=== PATIENT | female | born 1965 | race Caucasian/White ===

== ENCOUNTER 2023-06-19 10:20 | Outpatient (RCR) | payer BC, SELFPAY | END 2023-06-25 12:57 | disposition home or self-care (01) | PROVIDERS: PCP Orthopaedic Surgery; Visit Provider Orthopaedic Surgery | DX: M16.0 Bilateral primary osteoarthritis of hip (principal); M70.61 Trochanteric bursitis, right hip; M70.62 Trochanteric bursitis, left hip; M25.552 Pain in left hip; R53.1 Weakness; R26.9 Unspecified abnormalities of gait and mobility; R26.81 Unsteadiness on feet; Z51.89 Encounter for other specified aftercare | CPT/HCPCS: 97110; 97162 ==

== ENCOUNTER 2023-07-02 06:02 | Day surgery (SDC) | payer BC, SELFPAY ==
[2023-07-02] VITALS (27 sets, daily range): BP systolic 80–142; BP diastolic 45–93; PULSE 65–90; RESP 14–18; TEMP 36.1–36.6; O2SAT 95–100; BMI 32.2
[2023-07-02] MEDS: LACTATED RINGERS 1000 ML 1,000 ML 100 ML IV ×2 (06:00→08:30)
[2023-07-02] MEDS: ACETAMINOPHEN 500 MG TABLET 1000 MG PO ×3 (06:39→20:27)
[2023-07-02] MEDS: CELECOXIB 200 MG CAPSULE PO (06:39)
[2023-07-02] MEDS: OXYCODONE (CR) 10 MG TAB.ER.12H PO (06:39)
[2023-07-02] MEDS: SODIUM CHLORIDE 0.9 % (FLUSH) 10 ML SYRINGE IVF (06:40)
[2023-07-02] MEDS: MIDAZOLAM HCL 1 MG/ML inj IVP (07:11)
[2023-07-02] MEDS: fentaNYL 100 MCG/2 ML inj IVP (07:11)
--- NOTE | 2023-07-02 07:15 | CRLHL7_ITS ---
For Patients: As a result of the Cures Act, medical imaging exams and procedure reports are released immediately into your electronic medical record. You may view this report before your referring provider. If you have questions, please contact your health care provider. Indication: Hip replacement surgery Technique: AP hip fluoroscopic images. Fluoroscopy time 114.3 seconds. Findings/Impression: Hardware from a left total hip arthroplasty is in satisfactory position. Dictated by Danial Sy MD @ 07/02/2023 12:04:32 PM (Electronically Signed)
--- NOTE | 2023-07-02 07:21 | SUR.PREOP ---
TIME?OUT:?0710 PT/RN/MDA?VERIFICATION?OF?SURGICAL?SITE left hip,?PROCEDURE Nerve block,?AND?CONSENT OBTAINED?PRIOR?TO?INVASIVE?PROCEDURE.
[2023-07-02] MEDS: CEFAZOLIN 2 GM INJ IVP (07:45)
[2023-07-02] MEDS: TRANEXAMIC ACID 100 MG/ML INJ 1000 MG IV (07:50)
--- NOTE | 2023-07-02 09:23 | W.PM.NB ---
Nerve Block Nerve Block Time Seen by Provider: 07:15 Date Seen: 07/02/23 Type of block requested by surgeon for post-operative analgesia: ADRIAN/LFCN Side: left Time out performed: Yes Verification of patient name: Yes Verification of date of : Yes Site marking: site marked Name of person performing procedure: Lorenzo Continuous monitoring Was continuous monitoring of O2 sat, B/P, athletic monitor, recorded every 15 minutes?: Yes Procedure Checklist: sterile prep, needles and gloves Ultrasound guided. Images saved: Yes Medications given in 5ml increments after negative aspiration: Ropivicaine %: 0.5 mL: 30 Needle gauge: 20 Decadron (mg): 10 Precedex (mcg): 25 Patient tolerated procedure well: Yes Additional comments: Needle noted below psoas tendon needle noted adjacent to LFCN Block Charges Block Charge (with Pro Fee): Other Periph Nerve Block Use of Ultrasound Machine for Block: Yes- US Guidance/pain block
--- NOTE | 2023-07-02 09:23 | W.ANESCHARGE ---
Anesthesia Charges Start Date/Time Anesthesia Start Date: 07/02/23 Anesthesia Start Time: 07:25 Stop Date/Time Anesthesia Stop Date: 07/02/23 Anesthesia Stop Time: 10:29
--- NOTE | 2023-07-02 09:46 | CRLHL7_ITS ---
For Patients: As a result of the Century Cures Act, medical imaging exams and procedure reports are released immediately into your electronic medical record. You may view this report before your referring provider. If you have questions, please contact your health care provider. Indication: POST OP Technique: AP hip centered pelvis and two views left hip Findings/Impression: Hardware from a left total hip arthroplasty is in satisfactory position. Bone alignment is normal. No sign of acute fracture. Postop changes are within normal limits. Dictated by Danial Sy MD @ 07/02/2023 12:08:16 PM (Electronically Signed)
--- NOTE | 2023-07-02 10:05 | P.ORPRC_ITS ---
Procedure Note Date of procedure: 07/02/23 Procedure: PREOPERATIVE DIAGNOSIS: Left hip osteoarthritis, acetabular dysplasia POSTOPERATIVE DIAGNOSIS: Left hip osteoarthritis, acetabular dysplasia NAME OF OPERATION: Left total hip arthroplasty SURGEON: Roshan Quintanilla MD LANDSCAPING SUPERVISOR: Gloria Frausto PA-C, CITLALI Augustin IMPLANTS: 1. [employer] [place] # 54 sector ingrowth cup, with 2 6.5 mm x 50 mm screws, 1 6.5 mm x 30 mm screw 2. 36 x 54 +4 neutral polyethylene 3. Actis # 7 standard collared ingrowth stem 4. 36 + 1.5 ceramic femoral head ANESTHESIA: General ESTIMATED BLOOD LOSS: 700 cc COMPLICATIONS: None SPECIMENS: None DRAINS: None PREOPERATIVE ANTIBIOTICS: Ancef 2 grams INDICATIONS: The patient is a 58-year-old with a longstanding history of severe, unrelenting left hip pain secondary to end-stage left hip osteoarthritis. Despite appropriate nonoperative management, including activity modification, use of an assist device, anti-inflammatories, [id number] pain medication, physical therapy and injections, they continue to have pain and disability. Operative intervention was offered. The risks, benefits and expected outcomes were discussed in detail. These included but were not limited to: Infection, bleeding, injury to blood vessel or nerve, venous thromboembolism. All questions were answered to their satisfaction. Use of an assistant professor of criminal justice was necessary throughout the case for patient positioning and safety, soft tissue retraction and closure. A modifier 22 should be added to this case. The shallow acetabulum with poor anterior column bone stock made reconstruction of the cup difficult. This took more than 2 times as long as is typical. Additionally, this increased our blood loss by 2. PROCEDURE: The patient was placed supine on the [place] table. General anesthesia was administered. The assistant professor of criminal justice made sure the patient was properly positioned. The left hip was prepped and draped in the usual sterile fashion. The image intensifier was brought in for a perfect AP pelvis and a perfect double tear drop AP view of each hip which were used for intraoperative templating with our fluoroscopic guide. An oblique incision was made 3 cm distal and 3 cm lateral to the anterior superior iliac spine. The assistant professor of criminal justice retracted the soft tissues to protect them. Subcutaneous dissection was taken with electrocautery to the superficial fascia. The fascia was divided in line with the incision. Blunt dissection was carried medially to the tensor fascia lo and sartorius interval. Deep dissection was carried with electrocautery. The circumflex vessels were cauterized and divided. The capsule was exposed and then divided in a T- fashion, tagged with #1 Ethibond sutures. Retractors were placed in the joint, held by the assistant professor of criminal justice. The corkscrew was placed in the femoral head. The neck cut was made in the subcapital region. We made a second neck cut more distal. The napkin ring of bone was removed. The femoral head was removed intact. Acetabular retractors were placed, held by the assistant professor of criminal justice. The labrum was sharply debrided. The capsule was released. The anterior column is quite small with significant acetabular dysplasia. The 43 mm reamer was used to the true medial wall. We then enlarged in 2 mm increments using the image intensifier for our reamer placement. We impacted the cup which had poor purchase. Therefore, we oriented the cup in the acetabulum temporarily. We then placed a 6.5 mm x 50 mm screw straight up the ilium. Its placement was confirmed with the image intensifier. This had excellent fixation. We placed a 2nd, 6.5 mm x 30 mm screw posteriorly. This had excellent fixation. Finally, we placed a 3rd screw measuring 6.5 mm x 30 mm up the ilium. This had excellent fixation as well. Now the cup is solidly fixed in the acetabulum. Screw placement was confirmed with the image intensifier. The polyethylene was placed. Attention was then turned to the proximal femur. The limb was placed in 140 degrees of external rotation, maximum extension and adduction. A significant amount of time was spent releasing the capsule to allow us to deliver the femur into the wound and complete the femoral side safely. Retractors were held by the assistant professor of criminal justice throughout the femoral preparation. The box repairer and canal finder were used. Broaches were used to a stable size. The calcar reamer was used. Trial components were placed. The hip was reduced and was found to be stable with appropriate soft tissue tension. Length and offset had been nicely restored using the image intensifier and our fluoroscopic guide. Trial components were removed. The stem was impacted. We placed the femoral head. Again, the hip was reduced and was found to be stable with appropriate soft tissue tension. Length and offset had been nicely restored. The assistant professor of criminal justice did a three minute dilute Betadine solution soak. The assistant professor of criminal justice irrigated the wound with 3 liters of normal saline via pulse lavage. The assistant professor of criminal justice repaired the anterior capsule with a #1 Vicryl and our previously placed Ethibond sutures. The assistant professor of criminal justice closed the fascia over the tensor fascia lo with a #1 PDO Stratafix, subcutaneous tissues with 2-0 Vicryl, skin with a running 3-0 Stratafix and glue. A dry dressing was applied by the assistant professor of criminal justice. Sponge and needle counts were correct x 2. The patient tolerated the procedure well; there were no apparent complications. They were awakened and extubated in the operating room, sent to the Post-Anesthesia Care Unit in satisfactory condition. PLAN: 1. The patient will be mobilized with physical therapy, weight-bearing as tolerates 2. Xarelto x 5 days then aspirin x 30 days will be used for DVT prophylaxis 3. The patient will be discharged once medically appropriate
[2023-07-02] MEDS: LACTATED RINGERS 1000 ML 1,000 ML 75 ML IV ×2 (10:32→11:24)
--- NOTE | 2023-07-02 10:37 | W.ANESCHARGE ---
Anesthesia Charges Start Date/Time Anesthesia Start Date: 07/02/23 Anesthesia Start Time: 07:25 Stop Date/Time Anesthesia Stop Date: 07/02/23 Anesthesia Stop Time: 10:29
[2023-07-02] MEDS: fentaNYL 100 MCG/2 ML inj 50 MCG IVP (10:50)
[2023-07-02] MEDS: HYDROmorphone 0.5 mg/0.5 ml inj IVP (11:00)
--- NOTE | 2023-07-02 15:04 | PM.IMCN1 ---
Date of Consult Patient: Francisco Patient Consult date: 07/02/23 Requesting Physician: Orthopedics Primary Care Provider: Not a Local Provider Consult Narrative Reason for consult: post op L SANTY Narrative: Verenice Luu is a 58 year old woman undergoes an elective left total hip arthroplasty today. Due to some technical difficulties the procedure takes a little longer than usual. Estimated blood loss 700 mL. Patient notes that she feels well at this time. Pain adequately managed. Has already walked from bed to recliner chair at bedside. Denies chest heaviness, pressure, tightness, or pain. Denies cough, dyspnea at rest, paroxysmal nocturnal dyspnea, orthopnea. Denies syncope or near-syncope. Denies orthostasis. Denies nausea or vomiting. Denies abdominal pain. Tolerating clear liquids orally. Review of Systems Status of ROS: Reports: 10 or more systems reviewed and unremarkable except as noted in History and below Narrative: Reviewed preoperative assessment from 06/19/2023, Dr. Perry, who concludes there are no apparent medical contraindications for surgery or anesthesia. Good exercise tolerance including capable of climbing more than 2 flights of stairs or walking more than 4 blocks without rest. Occasionally takes Excedrin for migraine headache. Does not use tobacco products. Does not consume alcoholic beverages. Denies the use of street or recreational drugs. for 37 years. [address] with . [facility] Medical History History of ectopic ?Z87.59 - Personal history of other complications of , childbirth and the puerperium (ICD-10) Thoracic or lumbosacral neuritis or radiculitis Migraine headache ?G43.909 - Migraine, unspecified, not intractable, without status migrainosus (ICD-10) Osteoarthritis ?M19.90 - Unspecified osteoarthritis, unspecified site (ICD-10) Surgical History H/O section ?Z98.891 - History of uterine scar from previous surgery (ICD-10) H/O hernia repair ?Z98.890 - Other specified postprocedural states (ICD-10) ?Z87.19 - Personal history of other diseases of the digestive system (ICD-10) H/O lumbar discectomy ?Z98.890 - Other specified postprocedural states (ICD-10) Family History Mother High blood pressure Social History Smoking Status: Never smoker How often do you have a drink containing alcohol: never AUDIT-C Alcohol total score: 0 Non-prescribed substance use: denies use Caffeine: Yes Are you using contraception or practicing any form of control: No Meds Home Medications and Allergies Home Medications Medication Instructions Recorded Confirmed Type multivitamin 1 tab PO QDAY 06/17/23 07/02/23 History ibuprofen 200 mg tablet (IBU-200) 600 mg PO Q6H PRN 06/30/23 07/02/23 History Home Medication Comments: Excedrin as needed for migraine headache Allergies Allergy/AdvReac Type Severity Reaction Status Date / Time No Known Drug Allergies Allergy Verified 07/02/23 06:19 Exam Narrative: Exam Narrative: Examined patient in her hospital room. Vision and hearing are normal. Appears sleepy but is awake, alert, oriented to self, place, time, situation. Tympanic membranes are normal. Midline nasal septum. Dentition in good repair. Neck is supple. Midline trachea. No head neck lymphadenopathy. Lungs are clear to auscultation, without wheezing, rhonchi, rales. Chest wall excursions are full. No CVA tenderness. Heart tones with regular rhythm, normal S1-S2, without murmur, gallop, or rub. PMI not laterally displaced. Abdomen with active bowel sounds, soft, nontender. Moves all 4 extremities. Const: Vital Signs, click to edit/add: Vital Signs - 24 hr 07/02/23 06:27 07/02/23 07:10 07/02/23 07:15 Temperature 97.6 F Pulse Rate 90 78 75 Pulse Rate [Pulse Oximeter] Respiratory Rate 16 16 16 Blood Pressure 133/90 H 142/93 H 134/78 Blood Pressure [Le ft Arm] Pulse Oximetry 99 99 99 Oxygen Delivery Me thod Room Air Nasal Cannula Nasal Cannula Oxygen Flow Rate 2 2 07/02/23 07:20 07/02/23 10:24 07/02/23 10:30 Temperature 97.0 F L Pulse Rate 76 70 70 Pulse Rate [Pulse Oximeter] Respiratory Rate 16 16 16 Blood Pressure 130/80 80/45 L 81/51 L Blood Pressure [Le ft Arm] Pulse Oximetry 99 96 96 Oxygen Delivery Me thod Nasal Cannula Room Air Room Air Oxygen Flow Rate 2 07/02/23 10:35 07/02/23 10:40 07/02/23 10:45 Temperature Pulse Rate 65 70 74 Pulse Rate [Pulse Oximeter] Respiratory Rate 14 16 14 Blood Pressure 81/53 L 94/56 L 92/72 Blood Pressure [Le ft Arm] Pulse Oximetry 98 98 96 Oxygen Delivery Me thod Room Air Room Air Room Air Oxygen Flow Rate 07/02/23 10:50 07/02/23 10:55 07/02/23 11:00 Temperature Pulse Rate 75 70 76 Pulse Rate [Pulse Oximeter] Respiratory Rate 16 16 16 Blood Pressure 101/68 105/62 103/66 Blood Pressure [Le ft Arm] Pulse Oximetry 97 96 100 Oxygen Delivery Me thod Room Air Room Air Room Air Oxygen Flow Rate 07/02/23 11:05 07/02/23 11:11 07/02/23 11:20 Temperature Pulse Rate 70 70 86 Pulse Rate [Pulse Oximeter] Respiratory Rate 16 16 16 Blood Pressure 102/60 98/64 Blood Pressure [Le ft Arm] 110/63 Pulse Oximetry 96 98 Oxygen Delivery Me thod Room Air Room Air Room Air Oxygen Flow Rate 07/02/23 11:30 07/02/23 11:45 07/02/23 12:00 Temperature 97.0 F L Pulse Rate Pulse Rate [Pulse Oximeter] 77 77 74 Respiratory Rate 16 16 16 Blood Pressure Blood Pressure [Le ft Arm] 111/69 114/73 107/72 Pulse Oximetry 97 99 97 Oxygen Delivery Me thod Room Air Room Air Room Air Oxygen Flow Rate 07/02/23 12:15 07/02/23 12:30 07/02/23 13:00 Temperature 97.4 F L Pulse Rate Pulse Rate [Pulse Oximeter] 78 89 86 Respiratory Rate 16 16 18 Blood Pressure Blood Pressure [Le ft Arm] 113/73 114/79 133/92 H Pulse Oximetry 98 96 98 Oxygen Delivery Me thod Room Air Room Air Room Air Oxygen Flow Rate 07/02/23 14:00 Temperature 97.9 F Pulse Rate Pulse Rate [Pulse Oximeter] 88 Respiratory Rate 16 Blood Pressure Blood Pressure [Le ft Arm] 115/75 Pulse Oximetry 97 Oxygen Delivery Me thod Room Air Oxygen Flow Rate Assessment and Plan Assessment and plan (1) Status post left hip replacement: Problem comment: -07/02/2022, Dr. Quintanilla, [facility] Status: Acute (2) Bilateral primary osteoarthritis of hip: Problem comment: End-stage bilateral Status: Acute Plan 1. Reviewed impression with patient and her . 2. Answered their questions are satisfaction. 3. Agree with perioperative antibiotic prophylaxis. 4. Agree with postoperative venous thromboembolism prophylaxis. 5. Have completed the hospitalist portion of the discharge orders for this patient, and from a medical perspective anticipate patient will be able to be discharged to her home tomorrow.
[2023-07-02] MEDS: CEFAZOLIN 2 GM in 0.9 % SODIUM CHLORIDE Mini-bag 100 ML IVPB (16:04)
[2023-07-02] MEDS: OXYCODONE 5 MG TABLET PO ×2 (16:24→20:29)
[2023-07-02] MEDS: SENNOSIDES 1 TAB TABLET 2 TAB PO (20:28)
[2023-07-03] VITALS: BP 123/74; PULSE 84; RESP 16; TEMP 36.6; O2SAT 96
[2023-07-03] MEDS: OXYCODONE 5 MG TABLET PO ×4 (00:01→12:25)
[2023-07-03] MEDS: CEFAZOLIN 2 GM in 0.9 % SODIUM CHLORIDE Mini-bag 100 ML IVPB (00:02)
[2023-07-03] MEDS: ACETAMINOPHEN 500 MG TABLET 1000 MG PO ×2 (02:19→08:29)
[2023-07-03 02:34] VITALS: BP 110/66; PULSE 82; RESP 16; TEMP 36.9; O2SAT 95
[2023-07-03 06:42] LABS: Basophils Percent Auto 0.1 % (0.0-3.0); Hematocrit 32.2 % (33.0-51.0); Hemoglobin* 10.7 gm/dL (12.0-16.0); Immature Granulocytes Pct Auto 0.2 %; Lymphocytes Percent Auto 15.5 % (20-44); Mean Corpuscular HGB Conc 33 gm/dL (32-36); Mean Corpuscular Hemoglobin 31 pg (26-34); Mean Corpuscular Volume 94 fL (80-100); Monocytes Percent Auto 6.3 % (0.0-11.0); Neutrophils Percent Auto 77.9 % (42.0-72.0); Platelet Count* 233 K/uL (140-440); RDW Coefficient of Variation % 13.4 % (11.5-15.5); Red Blood Count 3.43 m/uL (4.00-5.20); White Blood Count* 18.48 K/uL (4.50-11.00)
[2023-07-03 06:44] LABS: Slide Review Reflex No
[2023-07-03 07:03] LABS: Potassium* 3.9 mmol/L (3.6-5.1); Sodium* 137 mmol/L (135-149)
[2023-07-03 07:06] LABS: Blood Urea Nitrogen* 13 mg/dL (7-30); Creatinine* 0.7 mg/dL (0.5-1.5); Est. Creatinine Clearance* 83.11; Estimated Glomerular Filt Rate 99 ml/min
--- NOTE | 2023-07-03 07:28 | PC.NURSE ---
End of shift note [id number]: Pt alert & oriented x 4 and able to transfer/ambulate with SBA using GB and RW. Pain to L hip has been 2-3/10 throughout the shift per pt report and controlled with PRN Oxycodone, rest, repositioning and ice. No c/o CP, shortness of breath or N/V noted throughout the shift. PRN Oxycodone administered with crackers provided to prevent GI upset. Dressing to L hip noted to be C/D/I and bilateral plexi pulses worn along with bilateral TEDs. IV in L hand SL after receiving last dose of IV ABX. Pt noted to have 2 IVs in L hand at start of shift though pt reported one IV got caught on her blanket during the night and came out- catheter tip of IV noted to be intact upon inspection. Andreas has stayed the night with pt. Pt has slept in both recliner and bed as she reports bed is not comfortable for her to sleep in continually. VSS and pt has been afebrile throughout the shift. CMS to LLE noted to be intact with <3 seconds capillary refill.
[2023-07-03 07:45] VITALS: BP 110/69; PULSE 85; RESP 16; TEMP 36.8; O2SAT 98
--- NOTE | 2023-07-03 07:52 | PM.ORCN ---
History of Present Illness HPI Time Seen by Provider: 07:52 Date Seen: 07/03/23 Consult date: 07/03/23 Chief complaint: Surgery Narrative: Vera couple this morning in the recliner. She denies nausea and vomiting today. She had some initially after surgery which has resolved. She has ambulated around her room and into the restroom which went well. She is accompanied by her . Review of Systems Narrative: Patient denies nausea, vomiting, fever, chills, chest pain, shortness of breath PFSH PFSH Medical History History of ectopic ?Z87.59 - Personal history of other complications of , childbirth and the puerperium (ICD-10) Thoracic or lumbosacral neuritis or radiculitis Migraine headache ?G43.909 - Migraine, unspecified, not intractable, without status migrainosus (ICD-10) Osteoarthritis ?M19.90 - Unspecified osteoarthritis, unspecified site (ICD-10) Surgical History H/O section ?Z98.891 - History of uterine scar from previous surgery (ICD-10) H/O hernia repair ?Z98.890 - Other specified postprocedural states (ICD-10) ?Z87.19 - Personal history of other diseases of the digestive system (ICD-10) H/O lumbar discectomy ?Z98.890 - Other specified postprocedural states (ICD-10) Family History Mother High blood pressure Social History Smoking Status: Never smoker How often do you have a drink containing alcohol: never AUDIT-C Alcohol total score: 0 Non-prescribed substance use: denies use Caffeine: Yes Are you using contraception or practicing any form of control: No Meds Home Medications and Allergies Home Medications Medication Instructions Recorded Confirmed Type multivitamin 1 tab PO QDAY 06/17/23 07/02/23 History ibuprofen 200 mg tablet (IBU-200) 600 mg PO Q6H PRN 06/30/23 07/02/23 History Allergies Allergy/AdvReac Type Severity Reaction Status Date / Time No Known Drug Allergies Allergy Verified 07/02/23 06:19 Ortho Exam Const Vital Signs, click to edit/add: Vital Signs - 24 hr 07/02/23 10:24 07/02/23 10:30 07/02/23 10:35 Temperature 97.0 F L Pulse Rate 70 70 65 Pulse Rate [Pulse Oximeter] Respiratory Rate 16 16 14 Blood Pressure 80/45 L 81/51 L 81/53 L Blood Pressure [Left Arm] Blood Pressure [Right Arm] Pulse Oximetry 96 96 98 Oxygen Delivery Method Room Air Room Air Room Air 07/02/23 10:40 07/02/23 10:45 07/02/23 10:50 Temperature Pulse Rate 70 74 75 Pulse Rate [Pulse Oximeter] Respiratory Rate 16 14 16 Blood Pressure 94/56 L 92/72 101/68 Blood Pressure [Left Arm] Blood Pressure [Right Arm] Pulse Oximetry 98 96 97 Oxygen Delivery Method Room Air Room Air Room Air 07/02/23 10:55 07/02/23 11:00 07/02/23 11:05 Temperature Pulse Rate 70 76 70 Pulse Rate [Pulse Oximeter] Respiratory Rate 16 16 16 Blood Pressure 105/62 103/66 102/60 Blood Pressure [Left Arm] Blood Pressure [Right Arm] Pulse Oximetry 96 100 96 Oxygen Delivery Method Room Air Room Air Room Air 07/02/23 11:11 07/02/23 11:20 07/02/23 11:30 Temperature 97.0 F L Pulse Rate 70 86 Pulse Rate [Pulse Oximeter] 77 Respiratory Rate 16 16 16 Blood Pressure 98/64 Blood Pressure [Left Arm] 110/63 111/69 Blood Pressure [Right Arm] Pulse Oximetry 98 97 Oxygen Delivery Method Room Air Room Air Room Air 07/02/23 11:45 07/02/23 12:00 07/02/23 12:15 Temperature Pulse Rate Pulse Rate [Pulse Oximeter] 77 74 78 Respiratory Rate 16 16 16 Blood Pressure Blood Pressure [Left Arm] 114/73 107/72 113/73 Blood Pressure [Right Arm] Pulse Oximetry 99 97 98 Oxygen Delivery Method Room Air Room Air Room Air 07/02/23 12:30 07/02/23 13:00 07/02/23 14:00 Temperature 97.4 F L 97.9 F Pulse Rate Pulse Rate [Pulse Oximeter] 89 86 88 Respiratory Rate 16 18 16 Blood Pressure Blood Pressure [Left Arm] 114/79 133/92 H 115/75 Blood Pressure [Right Arm] Pulse Oximetry 96 98 97 Oxygen Delivery Method Room Air Room Air Room Air 07/02/23 15:00 07/02/23 16:00 07/02/23 17:00 Temperature 97.5 F L 97.7 F Pulse Rate Pulse Rate [Pulse Oximeter] 78 76 79 Respiratory Rate 16 16 16 Blood Pressure Blood Pressure [Left Arm] 111/69 115/69 122/86 Blood Pressure [Right Arm] Pulse Oximetry 95 97 98 Oxygen Delivery Method Room Air Room Air Room Air 07/02/23 20:00 07/02/23 23:00 07/03/23 00:00 Temperature 97.8 F 97.9 F Pulse Rate Pulse Rate [Pulse Oximeter] 85 84 84 Respiratory Rate 16 16 16 Blood Pressure Blood Pressure [Left Arm] Blood Pressure [Right Arm] 120/75 123/74 Pulse Oximetry 98 96 Oxygen Delivery Method Room Air Room Air 07/03/23 02:34 Temperature 98.5 F Pulse Rate Pulse Rate [Pulse Oximeter] 82 Respiratory Rate 16 Blood Pressure Blood Pressure [Left Arm] Blood Pressure [Right Arm] 110/66 Pulse Oximetry 95 Oxygen Delivery Method Room Air Results Labs Labs: Laboratory Results - last 48 hr 07/02/23 07/03/23 07:05 05:45 WBC 18.48 H RBC 3.43 L Hgb 10.7 L Hct 32.2 L MCV 94 MCH 31 MCHC 33 RDW Coeff of [place] 13.4 Plt Count 233 Neut % (Auto) 77.9 H Lymph % (Auto) 15.5 L [place] % (Auto) 6.3 Eos % (Auto) 0.0 Baso % (Auto) 0.1 Neut # (Auto) 14.40 H Lymph # (Auto) 2.90 [place] # (Auto) 1.20 H Eos # (Auto) 0.00 Baso # (Auto) 0.00 Abs Immat Gran (auto) 0.00 Imm/Tot Granulo (auto) 0.2 Sodium 137 Potassium 3.9 BUN 13 Creatinine 0.7 Estimated Creat Clear 83.11 Estimated GFR 99 Blood Type A Positive Antibody Screen NEGATIVE Assessment and Plan Assessment and plan (1) Status post left hip replacement: Problem comment: -07/02/2022, Dr. Quintanilla, [facility] Status: Acute Total time spent: Total time spent is greater than 50% in coordination of care (as documented) at patient's floor/unit and/or counseling patient: (2) Bilateral primary osteoarthritis of hip: Problem comment: End-stage bilateral Status: Acute Total time spent: Total time spent is greater than 50% in coordination of care (as documented) at patient's floor/unit and/or counseling patient:
--- NOTE | 2023-07-03 07:55 | P.ORPN_ITS ---
Subjective Subjective Time Seen by Provider: 07:55 Date Seen: 07/03/23 Principal diagnosis: Status post left hip replacement Interval history: Vera is comfortable in her recliner. She has ambulated within her room and to the restroom. This went well. She denies nausea and vomiting. She had nausea initially after surgery which has resolved. Ortho Exam Narrative Exam Narrative: Alert and oriented x3. Patient is in no acute distress. Converses without labored breathing. Hearing is grossly intact. Ambulates with a walker. Examination of left hip shows the dressing is intact. Mild soft tissue edema. No tenderness to palpation. CMS intact left lower extremity. Quad strength 5/5. Able to dorsiflex and plantar flex the left ankle and great toe. Bilateral calves are soft and nontender Const Vital Signs, click to edit/add: Vital Signs - 24 hr 07/02/23 10:24 07/02/23 10:30 07/02/23 10:35 Temperature 97.0 F L Pulse Rate 70 70 65 Pulse Rate [Pulse Oximeter] Respiratory Rate 16 16 14 Blood Pressure 80/45 L 81/51 L 81/53 L Blood Pressure [Left Arm] Blood Pressure [Right Arm] Pulse Oximetry 96 96 98 Oxygen Delivery Method Room Air Room Air Room Air 07/02/23 10:40 07/02/23 10:45 07/02/23 10:50 Temperature Pulse Rate 70 74 75 Pulse Rate [Pulse Oximeter] Respiratory Rate 16 14 16 Blood Pressure 94/56 L 92/72 101/68 Blood Pressure [Left Arm] Blood Pressure [Right Arm] Pulse Oximetry 98 96 97 Oxygen Delivery Method Room Air Room Air Room Air 07/02/23 10:55 07/02/23 11:00 07/02/23 11:05 Temperature Pulse Rate 70 76 70 Pulse Rate [Pulse Oximeter] Respiratory Rate 16 16 16 Blood Pressure 105/62 103/66 102/60 Blood Pressure [Left Arm] Blood Pressure [Right Arm] Pulse Oximetry 96 100 96 Oxygen Delivery Method Room Air Room Air Room Air 07/02/23 11:11 07/02/23 11:20 07/02/23 11:30 Temperature 97.0 F L Pulse Rate 70 86 Pulse Rate [Pulse Oximeter] 77 Respiratory Rate 16 16 16 Blood Pressure 98/64 Blood Pressure [Left Arm] 110/63 111/69 Blood Pressure [Right Arm] Pulse Oximetry 98 97 Oxygen Delivery Method Room Air Room Air Room Air 07/02/23 11:45 07/02/23 12:00 07/02/23 12:15 Temperature Pulse Rate Pulse Rate [Pulse Oximeter] 77 74 78 Respiratory Rate 16 16 16 Blood Pressure Blood Pressure [Left Arm] 114/73 107/72 113/73 Blood Pressure [Right Arm] Pulse Oximetry 99 97 98 Oxygen Delivery Method Room Air Room Air Room Air 07/02/23 12:30 07/02/23 13:00 07/02/23 14:00 Temperature 97.4 F L 97.9 F Pulse Rate Pulse Rate [Pulse Oximeter] 89 86 88 Respiratory Rate 16 18 16 Blood Pressure Blood Pressure [Left Arm] 114/79 133/92 H 115/75 Blood Pressure [Right Arm] Pulse Oximetry 96 98 97 Oxygen Delivery Method Room Air Room Air Room Air 07/02/23 15:00 07/02/23 16:00 07/02/23 17:00 Temperature 97.5 F L 97.7 F Pulse Rate Pulse Rate [Pulse Oximeter] 78 76 79 Respiratory Rate 16 16 16 Blood Pressure Blood Pressure [Left Arm] 111/69 115/69 122/86 Blood Pressure [Right Arm] Pulse Oximetry 95 97 98 Oxygen Delivery Method Room Air Room Air Room Air 07/02/23 20:00 07/02/23 23:00 07/03/23 00:00 Temperature 97.8 F 97.9 F Pulse Rate Pulse Rate [Pulse Oximeter] 85 84 84 Respiratory Rate 16 16 16 Blood Pressure Blood Pressure [Left Arm] Blood Pressure [Right Arm] 120/75 123/74 Pulse Oximetry 98 96 Oxygen Delivery Method Room Air Room Air 07/03/23 02:34 Temperature 98.5 F Pulse Rate Pulse Rate [Pulse Oximeter] 82 Respiratory Rate 16 Blood Pressure Blood Pressure [Left Arm] Blood Pressure [Right Arm] 110/66 Pulse Oximetry 95 Oxygen Delivery Method Room Air Assessment and Plan Assessment and plan (1) Status post left hip replacement: Problem details: -07/02/2022, Dr. Quintanilla, [facility] Status: Acute Assessment and Plan: Plan for discharge is today to home if they meet discharge criteria. DVT prophylaxis includes Xarelto 10 mg daily for total of 5 days, then aspirin 81 mg twice daily for 30 days, José Miguel stockings x1 month may remove for 1 hr per day, frequent ambulation Remove dressing 1 week. Observe wound and phone Orthopedics with any questions or concerns Use Ice on operative hip unrestricted. Return to clinic in 1 week with PA for a wound check Return to clinic in 6 weeks with surgeon Minimize narcotic use. Wean off and discontinue soon as possible. Activities as tolerated. No strenuous activity. Attend outpt PT Over the next week swelling and bruising may increase. Elevate left lower extremity as needed.
[2023-07-03] MEDS: RIVAROXABAN 10 MG TABLET PO (08:29)
[2023-07-03] MEDS: SENNOSIDES 1 TAB TABLET 2 TAB PO (08:29)
--- NOTE | 2023-07-03 12:57 | PC.NURSE ---
VSS AND AFEBRILE. PAIN CONTROLLED WITH PRN OXYCODONE AND SCHEDULED TYLENOL. UP WITH A1, WALKER AND GAIT BELT AND TOLERATING ACTIVITY WELL. TOLERATING REGULAR DIET WITH NO C/O N/V. DRESSING CDI. SALINE LOCK DC'D. REVIEWED DC INSTRUCTIONS WITH PATIENT AND HER . DENIED QUESTIONS OR CONCERNS. DC'D HOME VIA WITH 2 ACTIVE ICE PACKS.
== END 2023-07-03 12:45 | disposition home or self-care (01) ==
LOC: OR 11:41 → MEDSURG 12:44
PROVIDERS: Visit Provider Orthopaedic Surgery
PROC: (CPT 27130; principal; 2023-07-02 07:15)
DX: M16.12 Unilateral primary osteoarthritis, left hip (principal); G89.18 Other acute postprocedural pain
CPT/HCPCS: 27130; 01214; 36415; 64450; 73501; 76000; 76942; 82565; 84132; 84295; 84520; 85025; 86850; 86900; 86901; 97110; 97116; 97161; 97165; A9270; C1713; C1776; J0330; J0690; J1100; J1170; J2250; J2371; J2405; J2704; J2710; J2795; J3010; J7120

== ENCOUNTER 2023-09-03 06:08 | Day surgery (SDC) | payer BC, SELFPAY ==
[2023-09-03] VITALS (34 sets, daily range): BP systolic 75–133; BP diastolic 44–89; PULSE 60–99; RESP 11–20; TEMP 36.1–36.9; O2SAT 91–100; BMI 32.1
[2023-09-03] MEDS: fentaNYL 100 MCG/2 ML inj IVP (06:05)
[2023-09-03] MEDS: OXYCODONE (CR) 10 MG TAB.ER.12H PO (06:30)
[2023-09-03] MEDS: CELECOXIB 200 MG CAPSULE PO (06:30)
[2023-09-03] MEDS: ACETAMINOPHEN 500 MG TABLET 1000 MG PO ×3 (06:30→19:05)
[2023-09-03] MEDS: LACTATED RINGERS 1000 ML 1,000 ML 100 ML IV (06:45)
[2023-09-03] MEDS: SODIUM CHLORIDE 0.9 % (FLUSH) 10 ML SYRINGE IVF (06:45)
[2023-09-03] MEDS: MIDAZOLAM HCL 1 MG/ML inj IVP (07:04)
--- NOTE | 2023-09-03 07:13 | SUR.PREOP ---
TIME?OUT:?0704 PT/RN/MDA?VERIFICATION?OF?SURGICAL?SITE,?PROCEDURE,?AND?CONSENT OBTAINED?PRIOR?TO?INVASIVE?PROCEDURE.
--- NOTE | 2023-09-03 07:15 | XR_ITS ---
Patient: DAVID GRAY Facility:?[facility] Patient ID:?[id number] Site Patient ID:?[id number]. Site :?1965 Study:?XRay-Hip Right INTRA OP-09/03/2023 9:19:53 AM Ordering Physician:KATHI Final Report: Indication: Hip replacement surgery Technique: AP hip fluoroscopic images. Fluoroscopy time 76.9 seconds. Findings/Impression: Hardware from a right total hip arthroplasty is in satisfactory position. Dictated by Danial Sy MD @ 09/03/2023 9:30:33 AM Signed by:?Danial Sy MD @09/03/2023 9:30:33 AM (Electronic Signature)
[2023-09-03] MEDS: CEFAZOLIN 2 GM INJ IVP (07:30)
--- NOTE | 2023-09-03 09:08 | XR_ITS ---
Patient: DAVID GRAY Facility:?[facility] Patient ID:?[id number] Site Patient ID:?[id number]. Site :?1965 Study:?XRay-Hip Right POST OP-09/03/2023 10:46:10 AM Ordering Physician:KATHI Final Report: Indication: POST OP RIGHT HIP Technique: AP hip centered pelvis and lateral view right hip Findings/Impression: Hardware from a right total hip arthroplasty is in satisfactory position. Bone alignment is normal. No sign of acute fracture. Postop changes are within normal limits. Dictated by Danial Sy MD @ 09/03/2023 11:23:36 AM Signed by:?Danial Sy MD @09/03/2023 11:23:36 AM (Electronic Signature)
--- NOTE | 2023-09-03 09:10 | P.ORPRC_ITS ---
Procedure Note Date of procedure: 09/03/23 Procedure: PREOPERATIVE DIAGNOSIS: Right hip osteoarthritis POSTOPERATIVE DIAGNOSIS: Right hip osteoarthritis NAME OF OPERATION: Right total hip arthroplasty SURGEON: Roshan Quintanilla MD DIRECTOR [employer]: Edelmira Major PA-C, CITLALI Augustin IMPLANTS: 1. [employer] Hope # 52 sector ingrowth cup 2. 36 x 52 +4 neutral polyethylene 3. Actis # 7 standard collared ingrowth stem 4. 36 + 1.5 ceramic femoral head ANESTHESIA: General ESTIMATED BLOOD LOSS: 600 cc COMPLICATIONS: None SPECIMENS: None DRAINS: None PREOPERATIVE ANTIBIOTICS: Ancef 2 grams INDICATIONS: The patient is a 58-year-old with a longstanding history of severe, unrelenting right hip pain secondary to end-stage right hip osteoarthritis. Despite appropriate nonoperative management, including activity modification, use of an assist device, anti-inflammatories, [id number] pain medication, physical therapy and injections, they continue to have pain and disability. Operative intervention was offered. The risks, benefits and expected outcomes were discussed in detail. These included but were not limited to: Infection, bleeding, injury to blood vessel or nerve, venous thromboembolism. All questions were answered to their satisfaction. Use of an radiology practitioner assistant was necessary throughout the case for patient positioning and safety, soft tissue retraction and closure. PROCEDURE: The patient was placed supine on the [place] table. General anesthesia was administered. The radiology practitioner assistant made sure the patient was properly positioned. The right hip was prepped and draped in the usual sterile fashion. The image intensifier was brought in for a perfect AP pelvis and a perfect double tear drop AP view of each hip which were used for intraoperative templating with our fluoroscopic guide. An oblique incision was made 3 cm distal and 3 cm lateral to the anterior superior iliac spine. The radiology practitioner assistant retracted the soft tissues to protect them. Subcutaneous dissection was taken with electrocautery to the superficial fascia. The fascia was divided in line with the incision. Blunt dissection was carried medially to the tensor fascia lo and sartorius interval. Deep dissection was carried with electrocautery. The circumflex vessels were cauterized and divided. The capsule was exposed and then divided in a T- fashion, tagged with #1 Ethibond sutures. Retractors were placed in the joint, held by the radiology practitioner assistant. The corkscrew was placed in the femoral head. The neck cut was made in the subcapital region. We made a second neck cut more distal. The napkin ring of bone was removed. The femoral head was removed intact. Acetabular retractors were placed, held by the radiology practitioner assistant. The labrum was sharply debrided. The capsule was released. The 43 mm reamer was used to the true medial wall. We then enlarged in 2 mm increments using the image intensifier for our reamer placement. We impacted the cup which had excellent purchase. There was not near the anterior column deficiency that we had to deal with on the other hip. However, the far lateral aspect of the cup is not tight to the lateral acetabular wall, because of the remodeling and wear. For this reason, I elected to place 2 screws into the ilium. They were drilled, using the image intensifier to confirm their placement and 2 x 6.5 mm x 40 mm screws were placed. These had excellent purchase. We placed the polyethylene. Attention was then turned to the proximal femur. The limb was placed in 140 degrees of external rotation, maximum extension and adduction. A significant amount of time was spent releasing the capsule to allow us to deliver the femur into the wound and complete the femoral side safely. Retractors were held by the radiology practitioner assistant throughout the femoral preparation. The boxing and pressing supervisor and canal finder were used. Broaches were used to a stable size. The calcar reamer was used. Trial components were placed. The hip was reduced and was found to be stable with appropriate soft tissue tension. Length and offset had been nicely restored using the image intensifier and our fluoroscopic guide. Trial components were removed. The stem was impacted. We placed the femoral head. Again, the hip was reduced and was found to be stable with appropriate soft tissue tension. Length and offset had been nicely restored. The radiology practitioner assistant did a three minute dilute Betadine solution soak. The radiology practitioner assistant irrigated the wound with 3 liters of normal saline via pulse lavage. The radiology practitioner assistant repaired the anterior capsule with a #1 Vicryl and our previously placed Ethibond sutures. The radiology practitioner assistant closed the fascia over the tensor fascia lo with a #1 PDO Stratafix, subcutaneous tissues with 2-0 Vicryl, skin with a running 3-0 Stratafix and glue. A dry dressing was applied by the radiology practitioner assistant. Sponge and needle counts were correct x 2. The patient tolerated the procedure well; there were no apparent complications. They were awakened and extubated in the operating room, sent to the Post-Anesthesia Care Unit in satisfactory condition. PLAN: 1. The patient will be mobilized with physical therapy, weight-bearing as tolerates 2. Xarelto x 5 days then aspirin x 30 days will be used for DVT prophylaxis 3. The patient will be discharged once medically appropriate
[2023-09-03] MEDS: fentaNYL 100 MCG/2 ML inj 50 MCG IVP ×3 (10:14→10:31)
[2023-09-03] MEDS: ALBUMIN HUMAN 25% 25 GM/100 ML VIAL IVPB (10:42)
--- NOTE | 2023-09-03 10:42 | P.NB_ITS ---
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 Images saved: Yes Medications given in 5ml increments after negative aspiration: Ropivicaine %: 0.5 mL: 30 Needle gauge: 20 Decadron (mg): 10 Precedex (mcg): 25 Patient tolerated procedure well: Yes Additional comments: Needle noted below psoas tendon needle noted adjacent to LFCN Block Charges Block Charge (with Pro Fee): Other Periph Nerve Block Use of Ultrasound Machine for Block: Yes- US Guidance/pain block
--- NOTE | 2023-09-03 10:42 | W.ANESCHARGE ---
Anesthesia Charges Start Date/Time Anesthesia Start Date: 09/03/23 Anesthesia Start Time: 07:18 Stop Date/Time Anesthesia Stop Date: 09/03/23 Anesthesia Stop Time: 10:08
--- NOTE | 2023-09-03 10:43 | W.ANESCHARGE ---
Anesthesia Charges Start Date/Time Anesthesia Start Date: 09/03/23 Anesthesia Start Time: 07:15 Stop Date/Time Anesthesia Stop Date: 09/03/23 Anesthesia Stop Time: 10:08
[2023-09-03] MEDS: HYDROmorphone 0.5 mg/0.5 ml inj IVP ×3 (10:50→20:48)
--- NOTE | 2023-09-03 11:31 | SUR.PHASEI ---
patient met discharge criteria per anesthesia
[2023-09-03] MEDS: LACTATED RINGERS 1000 ML 1,000 ML 75 ML IV (11:53)
[2023-09-03] MEDS: OXYCODONE 5 MG TABLET PO (13:11)
[2023-09-03] MEDS: CEFAZOLIN 2 GM in 0.9 % SODIUM CHLORIDE Mini-bag 100 ML IVPB ×2 (13:56→21:00)
--- NOTE | 2023-09-03 14:19 | P.IMCN_ITS ---
Date of Consult Consult date: 09/03/23 Requesting Physician: Orthopedics Primary Care Provider: Tunde Perry MD Consult Narrative Reason for consult: Narrative: HOSPITALIST CONSULT Procedure: NAME OF OPERATION: Right total hip arthroplasty SURGEON: Roshan Quintanilla MD ANESTHESIA: General ESTIMATED BLOOD LOSS: 600 cc The hospital medicine team was asked by the orthopedic surgery team to manage the patient' post op anemia/blood loss. pre-op hgb 14.5 on 08/28/23. Vitals post op stable. 600 cc EBL. There have been no perioperative complications. Updated and reviewed the active medical problems, past medical history, past surgical history, social history, allergies and medications in our electronic EMR. PHYSICAL EXAM: CODE STATUS: FULL CODE CONSTITUTIONAL: Conversive, good historian. A/O. Knows setting and context. VITAL SIGNS: see record. HEENT: Normocephalic, atraumatic. PERRL, EOMI, conjunctivae pink, no scleral icterus. Ears and nose externally normal. Pharynx normal. NECK: No JVD. No carotid bruit, no thyromegaly, no adenopathy. CHEST: Clear to auscultation bilaterally HEART: S1 and S2 normal. ABDOMEN: Flat, soft, nontender. Normal bowel sounds. Moderately obese. EXTREMITIES: No edema. MUSCULOSKELETAL: right hip SDI, dry. NEURO: Cranial nerves intact. Mentation normal. Normal affect. SKIN: No rashes, petechiae, concerning changes PSYCHIATRIC: Mentation normal. INVESTIGATIONS: EMR Reviewed; Pre-OP Reviewed DISPOSITION: DVT: Agree with Ortho team decision GI: PO intake PFSH [facility] Medical History (Updated 09/03/23 @ 14:49 by Jagruti Akbar MD) History of ectopic ?Z87.59 - Personal history of other complications of , childbirth and the puerperium (ICD-10) Thoracic or lumbosacral neuritis or radiculitis Migraine headache ?G43.909 - Migraine, unspecified, not intractable, without status migrainosus (ICD-10) Osteoarthritis ?M19.90 - Unspecified osteoarthritis, unspecified site (ICD-10) Surgical History (Updated 09/03/23 @ 14:50 by Jagruti Akbar MD) Status post bilateral hip replacements ?Z96.643 - Presence of artificial hip joint, bilateral (ICD-10) H/O section ?Z98.891 - History of uterine scar from previous surgery (ICD-10) H/O hernia repair ?Z98.890 - Other specified postprocedural states (ICD-10) ?Z87.19 - Personal history of other diseases of the digestive system (ICD-10) H/O lumbar discectomy ?Z98.890 - Other specified postprocedural states (ICD-10) Family History Mother High blood pressure Social History Smoking Status: Never smoker How often do you have a drink containing alcohol: never AUDIT-C Alcohol total score: 0 Non-prescribed substance use: denies use Caffeine: Yes (2c/day) Are you using contraception or practicing any form of control: No Meds Home Medications and Allergies Home Medications Medication Instructions Recorded Confirmed Type multivitamin 1 tab PO DAILY 06/17/23 09/03/23 History ibuprofen 200 mg tablet (IBU-200) 600 mg PO Q6H PRN 06/30/23 09/03/23 History Allergies Allergy/AdvReac Type Severity Reaction Status Date / Time No Known Drug Allergies Allergy Verified 09/03/23 06:19 Exam Const: Vital Signs, click to edit/add: Vital Signs - 24 hr 09/03/23 06:55 09/03/23 07:05 09/03/23 07:10 Temperature 98.5 F Pulse Rate 85 93 83 Pulse Rate [Left P ulse Oximeter] Respiratory Rate 16 16 16 Blood Pressure 133/70 133/85 117/76 Blood Pressure [Ri ght Arm] Pulse Oximetry 97 100 98 Oxygen Delivery Me thod Room Air Nasal Cannula Nasal Cannula Oxygen Flow Rate 2 2 09/03/23 10:04 09/03/23 10:07 09/03/23 10:10 Temperature 97.6 F 97.6 F 97.6 F Pulse Rate 60 60 61 Pulse Rate [Left P ulse Oximeter] Respiratory Rate 12 13 12 Blood Pressure 78/44 L 92/51 L 87/75 L Blood Pressure [Ri ght Arm] Pulse Oximetry 99 99 99 Oxygen Delivery Me thod Room Air Room Air Room Air Oxygen Flow Rate 09/03/23 10:12 03/07/24 10:15 09/03/23 10:20 Temperature 97.6 F 97.6 F 97.6 F Pulse Rate 61 65 66 Pulse Rate [Left P ulse Oximeter] Respiratory Rate 12 12 16 Blood Pressure 92/64 96/59 L 100/67 Blood Pressure [Ri ght Arm] Pulse Oximetry 100 100 100 Oxygen Delivery Me thod Room Air Room Air Room Air Oxygen Flow Rate 09/03/23 10:25 09/03/23 10:30 09/03/23 10:35 Temperature 97.6 F 97.6 F 97.6 F Pulse Rate 67 75 68 Pulse Rate [Left P ulse Oximeter] Respiratory Rate 14 20 14 Blood Pressure 99/66 75/54 L 106/58 L Blood Pressure [Ri ght Arm] Pulse Oximetry 100 100 100 Oxygen Delivery Me thod Room Air Room Air Room Air Oxygen Flow Rate 09/03/23 10:40 09/03/23 10:45 09/03/23 10:50 Temperature 97.6 F 97.6 F 97.6 F Pulse Rate 70 71 71 Pulse Rate [Left P ulse Oximeter] Respiratory Rate 13 13 12 Blood Pressure 94/69 118/77 113/70 Blood Pressure [Ri ght Arm] Pulse Oximetry 100 100 100 Oxygen Delivery Me thod Room Air Room Air Room Air Oxygen Flow Rate 09/03/23 10:55 09/03/23 11:00 09/03/23 11:05 Temperature 97.6 F 97.6 F 97.6 F Pulse Rate 69 68 70 Pulse Rate [Left P ulse Oximeter] Respiratory Rate 11 L 12 12 Blood Pressure 116/80 119/75 113/79 Blood Pressure [Ri ght Arm] Pulse Oximetry 100 100 98 Oxygen Delivery Me thod Room Air Room Air Room Air Oxygen Flow Rate 09/03/23 11:10 09/03/23 11:15 09/03/23 11:32 Temperature 97.6 F 97.6 F 97.8 F Pulse Rate 69 75 Pulse Rate [Left P ulse Oximeter] 76 Respiratory Rate 12 12 12 Blood Pressure 119/72 123/85 Blood Pressure [Ri ght Arm] 115/88 Pulse Oximetry 100 100 99 Oxygen Delivery Me thod Room Air Room Air Room Air Oxygen Flow Rate 09/03/23 13:28 Temperature 97.8 F Pulse Rate 76 Pulse Rate [Left P ulse Oximeter] Respiratory Rate 12 Blood Pressure 115/88 Blood Pressure [Ri ght Arm] Pulse Oximetry 99 Oxygen Delivery Me thod Room Air Oxygen Flow Rate Assessment and Plan Assessment and plan (1) Status post right hip replacement: Problem comment: Hospital medicine team is happy to follow the patient through to discharge. There have been no perioperative complications. I agree with VTE prophylaxis. Expect a routine postoperative course with discharge in the morning. Status: Acute
--- NOTE | 2023-09-03 15:26 | PC.NURSE ---
End of shift: Patient alert and oriented x4. VSS. Ice pack to op site. Dressing to right hip C/D/I. Bilateral teds, plexi pulses applied, and encouraged to do ankle pumps. Patient tolerating a reg diet. PRN pain meds administered x2 w/relief see emar. Patient rating her pain 2/10. Patient ambulates w/walker/GB to BR and up to chair for meals. at bedside.
[2023-09-03] MEDS: TRAMADOL HCL 50 MG TABLET PO (16:55)
--- NOTE | 2023-09-03 20:06 | PC.NURSE ---
End of Shift: Pt pleasant and cooperative throughout shift. Reported pain between 1-4/10 in right hip region. Incisional dressing remained CDI, ice pack on and off site. Ambulates well with walker, GB, SBA. Voiding without issue, no BM. Tolerating regular diet well. at bedside.
[2023-09-04] MEDS: ACETAMINOPHEN 500 MG TABLET 1000 MG PO ×2 (00:25→06:47)
[2023-09-04 03:00] VITALS: BP 111/66; PULSE 83; RESP 18; TEMP 36.9; O2SAT 96
--- NOTE | 2023-09-04 05:24 | PC.NURSE ---
Patient pleasant, alert and oriented. Dressing to right hip clean, dry and intact. Ice pack applied to hip.?Scheduled Tylenol and PRN Dilaudid given for pain rated 3-4/10.?Ambulates with walker, gait belt and stand by assist. remained at bedside. ?
[2023-09-04 06:16] LABS: Basophils Percent Auto 0.1 % (0.0-3.0); Eosinophils Percent Auto 0.1 % (0.0-7.0); Hematocrit 31.8 % (33.0-51.0); Hemoglobin* 10.4 gm/dL (12.0-16.0); Immature Granulocytes Pct Auto 0.2 %; Lymphocytes Percent Auto 13.6 % (20-44); Mean Corpuscular HGB Conc 33 gm/dL (32-36); Mean Corpuscular Hemoglobin 31 pg (26-34); Mean Corpuscular Volume 94 fL (80-100); Monocytes Percent Auto 6.5 % (0.0-11.0); Neutrophils Percent Auto 79.5 % (42.0-72.0); Platelet Count* 239 K/uL (140-440); RDW Coefficient of Variation % 13.1 % (11.5-15.5); Red Blood Count 3.37 m/uL (4.00-5.20); White Blood Count* 17.95 K/uL (4.50-11.00)
[2023-09-04 06:18] LABS: Slide Review Reflex No
[2023-09-04 06:25] LABS: Potassium* 3.9 mmol/L (3.6-5.1); Sodium* 136 mmol/L (135-149)
[2023-09-04 06:28] LABS: Creatinine* 0.7 mg/dL (0.5-1.5); Est. Creatinine Clearance* 83.11; Estimated Glomerular Filt Rate 99 ml/min
[2023-09-04 06:29] LABS: Blood Urea Nitrogen* 19 mg/dL (7-30)
[2023-09-04] MEDS: OXYCODONE 5 MG TABLET PO (07:07)
[2023-09-04 08:00] VITALS: BP 112/61; PULSE 85; RESP 18; TEMP 36.9; O2SAT 98
[2023-09-04] MEDS: RIVAROXABAN 10 MG TABLET PO (08:41)
--- NOTE | 2023-09-04 09:19 | PC.SOCIAL ---
Discharge planning: slab worker met with pt and today to discuss discharge planning. Pt feels good about going home and has no concerns. Social work to follow-up if needed.
--- NOTE | 2023-09-04 09:39 | P.ORPN_ITS ---
Subjective Subjective Time Seen by Provider: 08:10 Date Seen: 09/04/23 Principal diagnosis: Day 1 s/p right total hip arthroplasty Interval history: Vera (pronounced Erich) is doing well and resting comfortably in her recliner. Accompanied by her , Andreas. C/o minimal right hip pain. Pain is well managed with acetaminophen, oxycodone and icing. Denies: fever, chills, chest pain, SOB, numbness/tingling distally. Denies BM postop, but admits to flatulence. Outpatient PT at [facility] scheduled to begin on 09/14. No acute concerns. Ortho Exam Narrative Exam Narrative: Incision/Dressing: Dressing appears clean and dry. No drainage present. Mepilex intact. Right hip appears moderately swollen but supple with no obvious eryt jyoti, fluctuance or excessive warmth. No ecchymosis or erythematous streaking. Warmth around the wound is appropriate. Ice is being utilized as needed. CMS: Intact distally with 2+ Dorsalis pedis and Posterior Tibial pulses. 5/5 motor strength dorsal and plantar flexion. Confirmed sensation distally. Intact straight leg raise. Calf: Bilateral calves are supple, with no swelling, pain, tenderness, erythema, discoloration or coolness to the touch. Constitutional: Patient is alert and oriented x3. Patient is in no acute distress and converses without labored breathing. Patient is able to make decisions and demonstrates good insight. Patient is pleasant and cooperative. Affect is full range and appropriate for the circumstances. Const Vital Signs, click to edit/add: Vital Signs - 24 hr 09/03/23 10:04 09/03/23 10:07 09/03/23 10:10 Temperature 97.6 F 97.6 F 97.6 F Pulse Rate 60 60 61 Pulse Rate [Left Pulse Oximeter] Respiratory Rate 12 13 12 Blood Pressure 78/44 L 92/51 L 87/75 L Blood Pressure [Left Arm] Blood Pressure [Right Arm] Pulse Oximetry 99 99 99 Oxygen Delivery Method Room Air Room Air Room Air 09/03/23 10:12 09/03/23 10:15 09/03/23 10:20 Temperature 97.6 F 97.6 F 97.6 F Pulse Rate 61 65 66 Pulse Rate [Left Pulse Oximeter] Respiratory Rate 12 12 16 Blood Pressure 92/64 96/59 L 100/67 Blood Pressure [Left Arm] Blood Pressure [Right Arm] Pulse Oximetry 100 100 100 Oxygen Delivery Method Room Air Room Air Room Air 09/03/23 10:25 09/03/23 10:30 09/03/23 10:35 Temperature 97.6 F 97.6 F 97.6 F Pulse Rate 67 75 68 Pulse Rate [Left Pulse Oximeter] Respiratory Rate 14 20 14 Blood Pressure 99/66 75/54 L 106/58 L Blood Pressure [Left Arm] Blood Pressure [Right Arm] Pulse Oximetry 100 100 100 Oxygen Delivery Method Room Air Room Air Room Air 09/03/23 10:40 09/03/23 10:45 09/03/23 10:50 Temperature 97.6 F 97.6 F 97.6 F Pulse Rate 70 71 71 Pulse Rate [Left Pulse Oximeter] Respiratory Rate 13 13 12 Blood Pressure 94/69 118/77 113/70 Blood Pressure [Left Arm] Blood Pressure [Right Arm] Pulse Oximetry 100 100 100 Oxygen Delivery Method Room Air Room Air Room Air 09/03/23 10:55 09/03/23 11:00 09/03/23 11:05 Temperature 97.6 F 97.6 F 97.6 F Pulse Rate 69 68 70 Pulse Rate [Left Pulse Oximeter] Respiratory Rate 11 L 12 12 Blood Pressure 116/80 119/75 113/79 Blood Pressure [Left Arm] Blood Pressure [Right Arm] Pulse Oximetry 100 100 98 Oxygen Delivery Method Room Air Room Air Room Air 09/03/23 11:10 09/03/23 11:15 09/03/23 11:27 Temperature 97.6 F 97.6 F 97.8 F Pulse Rate 69 75 76 Pulse Rate [Left Pulse Oximeter] Respiratory Rate 12 12 12 Blood Pressure 119/72 123/85 115/88 Blood Pressure [Left Arm] Blood Pressure [Right Arm] Pulse Oximetry 100 100 99 Oxygen Delivery Method Room Air Room Air Room Air 09/03/23 11:30 09/03/23 11:32 09/03/23 11:45 Temperature 96.9 F L 97.8 F 97.6 F Pulse Rate 76 80 Pulse Rate [Left Pulse Oximeter] 76 Respiratory Rate 16 12 16 Blood Pressure 113/89 119/70 Blood Pressure [Left Arm] Blood Pressure [Right Arm] 115/88 Pulse Oximetry 96 99 98 Oxygen Delivery Method Room Air Room Air Room Air 09/03/23 12:00 03/07/24 12:15 09/03/23 13:00 Temperature 98.0 F 98.0 F 97.6 F Pulse Rate 76 76 76 Pulse Rate [Left Pulse Oximeter] Respiratory Rate 16 16 12 Blood Pressure 111/60 98/67 117/74 Blood Pressure [Left Arm] Blood Pressure [Right Arm] Pulse Oximetry 98 98 96 Oxygen Delivery Method Room Air Room Air Room Air 09/03/23 14:00 09/03/23 15:00 09/03/23 15:00 Temperature 97.8 F 97.6 F Pulse Rate 76 91 Pulse Rate [Left Pulse Oximeter] 91 Respiratory Rate 16 16 16 Blood Pressure 119/80 120/71 Blood Pressure [Left Arm] Blood Pressure [Right Arm] Pulse Oximetry 96 96 Oxygen Delivery Method Room Air Room Air 09/03/23 16:00 09/03/23 17:00 09/03/23 18:00 Temperature 97.6 F 97.4 F L 97.7 F Pulse Rate 96 79 94 Pulse Rate [Left Pulse Oximeter] Respiratory Rate 16 16 16 Blood Pressure 99/67 112/86 117/78 Blood Pressure [Left Arm] Blood Pressure [Right Arm] Pulse Oximetry 95 95 96 Oxygen Delivery Method Room Air Room Air Room Air 09/03/23 19:00 09/03/23 22:05 09/03/23 22:05 Temperature 97.1 F L 98.3 F 98.3 F Pulse Rate Pulse Rate [Left Pulse Oximeter] 99 82 82 Respiratory Rate 16 18 18 Blood Pressure Blood Pressure [Left Arm] Blood Pressure [Right Arm] 98/61 114/65 114/65 Pulse Oximetry 96 91 91 Oxygen Delivery Method Room Air Room Air Room Air 09/04/23 03:00 09/04/23 08:00 09/04/23 08:00 Temperature 98.4 F 98.5 F Pulse Rate Pulse Rate [Left Pulse Oximeter] 83 85 85 Respiratory Rate 18 18 18 Blood Pressure Blood Pressure [Left Arm] 112/61 Blood Pressure [Right Arm] 111/66 Pulse Oximetry 96 98 Oxygen Delivery Method Room Air Room Air Assessment and Plan Assessment and plan (1) Status post right hip replacement: Problem details: DOS: 09/03/23, Dr. Quintanilla Status: Acute Assessment and Plan: Vera is doing well postoperatively. No acute concerns. - Complete 23 hour perioperative antibiotics. - PT/OT consults for education and assistance. Outpatient PT scheduled to begin at [facility] on 09/14. - Weight bear as tolerated with a walker for assistance. - Prescribed analgesics as needed. Patient is content with current narcotic medications. Minimize narcotic pain medication use; wean off and discontinue as soon as possible. - DVT prophylaxis: Xarelto x 5 days followed by aspirin 81 mg BID x 30 days. Also bilateral knee high José Miguel stockings (x 1 month), frequent ambulation and ankle pumps when sedentary. - Dressing is waterproof. May shower. Surgical glue covers the wound. - Social consult for discharge planning. - Anticipate patient will be discharged to home this afternoon if the patient remains medically stable, pain is controlled and is safe with ambulation. - Return to clinic in 1 week for a wound check. Mepilex dressing will be removed at this appointment. Remove sooner if dressing becomes saturated. - Return to clinic in [address] Quintanilla. - Phone Orthopedics with any questions or concerns. [phone] Total Time Spent Total time spent: 20
--- NOTE | 2023-09-04 10:34 | PC.NURSE ---
Discharge: Patient pleasant and cooperative. Patient vitally stable, lungs clear, BS WNL, IV removed, catheter intact. Patient SBA/walker. Patient rates right hip pain 1/10, no pain meds given. Active ice to right hip, right hip dressing C/D/I. Patient tolerating regular diet and urinating. Patient signed discharge form, there was no belongings form. Patient had no further questions regarding discharge education. Patient left the floor by wheelchair to home at 1023.
== END 2023-09-04 10:23 | disposition home or self-care (01) ==
LOC: OR 06:08 → MEDSURG 11:30
PROVIDERS: PCP Family Medicine; Visit Provider Orthopaedic Surgery
PROC: (CPT 27130; principal; 2023-09-03 07:15)
DX: M16.11 Unilateral primary osteoarthritis, right hip (principal); G89.18 Other acute postprocedural pain; D62 Acute posthemorrhagic anemia
CPT/HCPCS: 27130; 01214; 36415; 64450; 73501; 76000; 76942; 82565; 84132; 84295; 84520; 85025; 97110; 97116; 97161; 97165; 97530; 97535; A9270; C1713; C1776; J0690; J1100; J1170; J2250; J2371; J2405; J2704; J2710; J3010; J7120; P9047